=== PATIENT | female | born 1990 | race Caucasian/White ===

== ENCOUNTER 2020-08-10 05:15 | Inpatient (IN) | payer OTHER ==
[~2020-08-10] VITALS: Ht 165.1 cm; Wt 96.6 kg
[2020-08-10] MEDS ORDERED: OXYTOCIN 30 UNITS IN 0.9% NaCl 500ML IV BAG (J2590) As Ordered ONE (05:34)
[2020-08-10 06:00] LABS: HEMATOCRIT 42.3 % (36.0-47.0); HEMOGLOBIN 14.8 g/dl (12.0-15.5); MEAN CORPUSCULAR HEMOGLOBIN 31.8 pg (27.0-33.0); MEAN CORPUSCULAR VOLUME 90.8 fl (80.0-96.0); PLATELET COUNT, AUTOMATED 190 10^3/uL (150-450); RED BLOOD COUNT 4.66 10^6/uL (4.00-5.40); WHITE BLOOD COUNT 14.8 10^3/uL (4.0-10.0)
[2020-08-10 06:10] VITALS: BP 144/88
[2020-08-10] MEDS ORDERED: LR 1,000 ML IV SCH ×2 (06:18)
[2020-08-10 06:25] VITALS: BP 136/73
[2020-08-10] MEDS ORDERED: DOCUSATE SODIUM 100 MG CAP PO PRN (06:30)
[2020-08-10] MEDS ORDERED: OXYTOCIN DRIP 30 UNITS in IV 1 EA IV SCH ×4 (06:30)
[2020-08-10] MEDS ORDERED: IBUPROFEN 600MG TAB PO PRN (06:30)
[2020-08-10] MEDS ORDERED: ACETAMINOPHEN TAB 650MG DOSE (2X325MG) PO PRN (06:30)
[2020-08-10] MEDS ORDERED: DIBUCAINE 1% OINTMENT 30GM TOP PRN (06:30)
--- NOTE | 2020-08-10 06:47 | HPEPDOC ---
Obstetrical History & Physical General Date of Admission Aug 10, 2020 at 05:15 History of Present Illness 29yo at 40+3 presented to labor and delivery in active labor stating she needs to push. Her contractions started at 0200 and her water broke at 0430 clear. She endorsed regular painful contractions. She denied vaginal bleeding or decreased FM. She denied n/v/d, cp, sob, armstrong, visual changes, f/c, urinary sx. Past Medical History Past Obstetrical History : Past Obstetrical History: Multigravida (prior term c/b pre-eclampsia without severe features) Type of Delivery: Spontaneous Vaginal Del. Complications: No [employer] History: No pertinent history Past Medical History Medical History obesity Surgical History: Tooth extraction Family History Significant Family History: No pertinent family hx Social History Marital Status: Family situation: Spouse/partner home Psychosocial History: No pertinent psych hx * Smoker: non-smoker Alcohol: Denies Drugs: denies Imunizations Tdap status: current Allergies Coded Allergies: Penicillins (Verified Allergy, Unknown, 08/10/20) Physical Examination Physical Examination GENERAL: Alert and oriented times three. BREAST: . ABDOMEN: Gravid and non-tender to touch. FETUS: Is vertex (VTX) by sterile vaginal examination (SVE), fetus is vertex (VTX) by Ino. HEART RATE: Regular rate and rhythm. LUNGS: Clear to auscultation (CTA). EXTREMITIES: No edema. No clonus. Deep tendon reflexes (DTRs) + . Laboratory Data 24H LABS Laboratory Tests 2 08/10/20 05:31: Nucleated Red Blood Cells % (auto) 0.0 08/10/20 05:50: 08/10/20 05:51: Serology Scanned Report Hepatitis B Testing CBC/BMP Laboratory Tests 08/10/20 05:31 Urine Culture: Contaminated Pertinent Laboratoy Data Blood Type: O+ RBC Antibody Screen: Negative HIV: Negative Hepatitis B: Negative Rapid Plasma Reagin: Nonreactive Rubella: Immune Varicella: Immune Chlamydia/Gonorrhea: Negative Group B Streptococcus: Negative Cystic Fibrosis: Negative Anatomy Ultrasound Placenta Location: Anterior Normal Anatomy: Yes Steroid Therapy Steroid Therapy: No Vaginal Examination Dilation: complete Effacement: 100% Station: +4 Presentation: Cephalic presentation (by exam) Assessment Heart Rate (FHR): 130 Variability: Moderate Accelerations: Positive Decelerations: Variable Tocometer Contractions: Yes Frequency: regular Assessment/Plan Assessment 29yo at 40+3 presented to labor and delivery in active labor ready to push and delivered a male baby in cephalic position precipitously c/b 1MLL. APC 1. history of pre-eclampsia without severe features 2. elevated 1h GTT normal 3h GTT 3. excessive weight gain in 4. allergy to PCNs 5. last pap ASCUS HPV negative PLAN - routine PPC - feeding: breast - regular diet - activity as tolerated NANI ROBERSON DO Aug 10, 2020 06:47
--- NOTE | 2020-08-10 06:54 | DNPDOC ---
[facility] Delivery Note Delivery Note DATE OF DELIVERY: 08/10/2020 PREDELIVERY DIAGNOSIS: 40+3/7 weeks' gestation and labor. POST DELIVERY DIAGNOSIS: Delivered. PROCEDURE: Spontaneous vaginal delivery SPEECH COACH: Dr. Marlon Roberson DO ANESTHESIA: local ESTIMATED BLOOD LOSS: 100 mL. FINDINGS: 3760g, Score 8/9, nuchal cord times 1. DELIVERY SUMMARY: 29yo at 40+3 presented in active labor and precipitously delivered a baby in the cephalic position atraumatically. The baby had spontaneous movement and cry. The cord was clamped after 60s and cut by the father of the baby. Cord blood was obtained. The placenta was delivered via jagdeep downward traction and was inspected to be in-tact and have a 3 vessel cord. The uterus was firm with massage and pitocin. Bleeding was scant. A first degree laceration was repaired with 0-vicryl in the usual fashion. The uterus remained firm. There were no complications. MARLON ROBERSON DO Aug 10, 2020 06:54
[2020-08-10 06:55] VITALS: BP 137/77
[2020-08-10 07:10] VITALS: BP 145/82
[2020-08-10] MEDS ORDERED: SLF 3 ML SYR IV PRN (08:30)
[2020-08-10 08:32] VITALS: BP 140/90
[2020-08-10] MEDS: PRENATAL VITAMINS CHEWABLE TABLET PO SCH (08:35)
[2020-08-10] MEDS: ACETAMINOPHEN 500 MG TAB PO PRN ×2 (08:35→17:48)
[2020-08-10] MEDS ORDERED: SLF 3 ML SYR IV SCH (14:00)
[2020-08-10] MEDS: IBUPROFEN 800 MG TAB PO PRN ×2 (14:52→22:32)
[2020-08-10 18:00] VITALS: BP 136/77
[2020-08-11 05:56] VITALS: BP 124/59
[2020-08-11 08:15] VITALS: BP 124/59
[2020-08-11] MEDS: IBUPROFEN 800 MG TAB PO PRN (08:21)
[2020-08-11] MEDS: PRENATAL VITAMINS CHEWABLE TABLET PO SCH (08:21)
[2020-08-11] MEDS ORDERED: INFLUENZA QUADRIVALENT PF VACCINE 0.5ML SYRINGE IM ONE (09:00)
[2020-08-11] MEDS ORDERED: ACET1TAB55 PO (09:20)
[2020-08-11] MEDS ORDERED: IBUP80TA PO (09:20)
--- NOTE | 2020-08-11 09:29 | OBDS ---
[facility] Obstetrical Discharge Sum. Obstetrical Discharge Summary Date: Aug 11, 2020 : 2 Term: 2 Pre-term: 0 Abortions: 0 Livin Delivery Uncomplicated on 10AUG2020. Sex: Male Infant Weight: grams (3760) Anesthesia: Local Anesthesia A/P, Post Course List any complications Admission diagnosis: Labor Discharge diagnosis: Delivered. Condition at Discharge: Stable Discharge Instructions: Bleeding and infection precautions, , PPD, shaken baby. Activity: Increase activity as tolerated. Diet: Regular Medications: Ordered at [facility]. Follow-up: Routine 6 week PP visit. Can f/u sooner PRN for s/sx of PPD, etc. Other: n/a ALEXANDER VAUGHAN CNM Aug 11, 2020 09:29
--- NOTE | 2020-08-11 09:48 | IPNPDOC ---
Progress Note Date of Service: Aug 11, 2020 Day#: 1 Progress Note SUBJECT: Elana is a 30yo 2 now Para 2002 status post uncomplicated spo ntaneous vaginal delivery at 40+3weeks' on 10AUG2020 of a male infant, 3760g with 1st degree perineal laceration with repair, doing well day #1. She has been ambulating, voiding spontaneously without issue and tolerating regular diet. Breast feeding without issue. Reports lochia is WNL. OBJECTIVE: VITAL SIGNS: Within normal limits, afebrile. 2x mild range BPs s/p delivery on 10AUG2020, otherwise normotensive. Alert and oriented times three. Observed normal, nonlabored breathing. Abdomen: Fundus firm at U-2. Soft, NTTP. Normal lochia. ASSESSMENT: PP Day #1, stable and progressing well, normal involution. without concern. PLAN: 1. Discharge to home today. 2. Tylenol and Motrin for pain. 3. Encourage breast feeding and ambulation. 4. Will discuss control at routine PP visit at 6 weeks. 5. Discussed return precautions at length. VS, I&O, 24H, Fishbone Vital Signs/I&O Vital Signs Date Time Temp Pulse Resp B/P (MAP) Pulse Ox O2 Delivery O2 Flow Rate FiO2 08/11/20 05:56 98.4 68 16 124/59 (80) 97 Room Air I&O- Last 24 Hours up to 6 AM 08/11/20 06:00 Output Total 800 ml Balance -800 ml ALEXANDER VAUGHAN CNM Aug 11, 2020 09:48
== END 2020-08-11 10:05 | disposition home or self-care (01) | DRG 807 ==
LOC: M LDI 05:15 → M OBS 08:06
PROVIDERS: ADMIT Obstetrics & Gynecology; ATTEND Obstetrics & Gynecology
PROC: 10E0XZZ Delivery of Products of Conception, External Approach (ICD-10-PCS; principal; 2020-08-10)
PROC: 0HQ9XZZ Repair Perineum Skin, External Approach (ICD-10-PCS; 2020-08-10)
DX: O48.0 Post-term pregnancy (principal); Z37.0 Single live birth; Z3A.40 40 weeks gestation of pregnancy; R63.5 Abnormal weight gain; O26.00 Excessive weight gain in pregnancy, unspecified trimester; O70.0 First degree perineal laceration during delivery